=== PATIENT | male | born 1985 | race Hispanic/Latino ===

== ENCOUNTER 2017-05-09 07:27 | Day surgery (SDC) | payer BC ==
[2017-05-08 14:39] VITALS: BMI 26.8
[2017-05-09 07:40] LABS: Hemoglobin 14.6 g/dL (14.0-18.0); Mean Corpuscular HGB CONC 33.4 g/dL (32.0-36.0); Mean Corpuscular Hemoglobin 31.6 pg (27.0-31.0); Mean Corpuscular Volume 94.6 fl (80.0-94.0); Platelet Count 182 thou/uL (130-400); RBC Distribution Width 11.3 % (11.5-14.5); Red Blood Cell (RBC) Count 4.63 mill/uL (4.70-6.10); White Blood Cell (WBC) Count 4.2 thou/uL (4.8-10.8)
[2017-05-09 07:47] LABS: PTT 32.8 SEC (22.9-36.1); Prothrombin Time 13.3 SEC (12.0-14.7)
[2017-05-09] MEDS ORDERED: Midazolam HCl 2 mg/2 ml Vial ONE (08:21)
[2017-05-09] MEDS ORDERED: Fentanyl 100 MCG/2 ML VIAL ONE (08:22)
[2017-05-09] MEDS ORDERED: Sodium Bicarbonate 2.5 MEQ/5 ML VIAL ONE (08:22)
[2017-05-09 09:36] VITALS: TEMP 98.8
[2017-05-09 09:43] VITALS: BP 110/54
--- NOTE | 2017-05-09 10:11 | ULT ---
ULTRASOUNDED GUIDED NONFOCAL LIVER BIOPSY: Indication: Abnormal LFTs. Technique: The margin of the left hepatic lobe was found on pre-procedure ultrasound and marked. The patient underwent informed consent. Site overlying the left hepatic lobe biopsy was prepped and drape d in the usual sterile fashion. The patient underwent conscious sedation under the guidance of the ra diology nurse and received 50 microgram of IV Fentanyl and 1 milligram of IV versed. Buffered 1% Lido natalee was administered to the overlying subcutaneous tissues. Small incision was made. A 17 gauge Tro car needle was guided down to the anterior margin of the left hepatic lobe. An 18 gauge core biopsy d evice was then guided into the trocar needle. A 2.2 cm core needle throw was then advanced into the l eft hepatic lobe. The specimen was placed in a specialized pathologic formalin solution. The specimen was felt to be adequate for a nonfocal liver biopsy. Inter stylet and the Trocar needle was replaced and the Trocar needle was then removed. Pressure was held at the biopsy site until hemostatis was ob tained. The patient tolerated the biopsy without difficulty. Post biopsy ultrasound demonstrated no s ignificant intraparenchymal or subcapsular hematoma. IMPRESSION: Successful nonfocal ultrasound guided liver biopsy. POS: [facility]
== END 2017-05-09 10:25 | disposition home or self-care (01) ==
LOC: ULT 07:27
PROVIDERS: ATTEND Internal Medicine
PROC: 0FB23ZX Excision of Left Lobe Liver, Percutaneous Approach, Diagnostic (ICD-10-PCS; principal; 2017-05-09)
PROC: BF45ZZZ Ultrasonography of Liver (ICD-10-PCS; principal; 2017-05-09)
DX: K83.1 Obstruction of bile duct (principal)
CPT/HCPCS: 36415; 47000; 76942; 85027; 85610; 85730; 88307; 88313; J2250; J3010